=== PATIENT | male | born 1995 | race Caucasian/White ===

== ENCOUNTER 2017-04-07 15:44 | Emergency (ER) | payer BC ==
[~2017-04-07] VITALS: Ht 177.8 cm; Wt 82.9 kg
[~2017-04-07 15:44] MED LIST: DEXT30TA7 PO
[2017-04-07 15:47] VITALS: TEMP 36.4; Ht 177.8 cm; Wt 82.9 kg
--- NOTE | 2017-04-07 16:28 | DIAGNOSTIC IMAGING REPORT ---
HEAD WITHOUT CONTRAST (CT) CLINICAL HISTORY: 21 years-old Male with Intoxicated, fell and struck head, ?LOC. Acute head injury status post fall with intoxication. Initial exam. TECHNIQUE: Multiple axial CT images of the head were obtained without contrast. A dose lowering technique was utilized adhering to the principles of ALARA. COMPARISON: None. FINDINGS: No acute intracranial hemorrhage, midline shift, mass, large territorial ischemia or abnormal extra-axial collection. The calvarium is intact. The paranasal sinuses, mastoid air cells, and middle ear cavities are clear. There is mild occipital scalp soft tissue swelling without opaque foreign body. IMPRESSION: 1. No acute intracranial abnormality. 2. Mild occipital scalp soft tissue swelling without skull fracture or opaque foreign body. The above report was generated using voice recognition software. It may contain grammatical, syntax or spelling errors. Electronically signed by: Ajit Estevez M.D. 04/07/2017 4:27 PM Dictated Date/Time: 04/07/2017 4:25 PM
--- NOTE | 2017-04-07 16:32 | DIAGNOSTIC IMAGING REPORT ---
CERVICAL SPINE W/O CT DOSE: 960.13 mGy.cm CLINICAL HISTORY: 21 years-old Male with Intoxicated, fell and struck head, ?LOC. Acute head and neck injury status post fall. Initial exam. COMPARISON: CT head of same day. TECHNIQUE: Multiple axial CT images of the cervical spine were obtained without contrast. A dose lowering technique was utilized adhering to the principles of ALARA. FINDINGS: Vertebral body heights and alignment are normal. No fracture or subluxation is identified. The intervertebral disc spaces are preserved. No significant central canal or neural foraminal stenosis is identified. Mild left-sided uncovertebral spurring is noted at C4-C5 without significant narrowing identified. The cervical soft tissues appear unremarkable. The visualized lung apices appear clear. There is mild prominence of the adenoid tonsils. IMPRESSION: 1. No acute cervical spine fracture or subluxation. 2. Mild left-sided uncovertebral spurring at C4-C5 without significant stenosis. 3. Incidental note is made of mild adenoid tonsillar enlargement. The above report was generated using voice recognition software. It may contain grammatical, syntax or spelling errors. Electronically signed by: Ajit Estevez M.D. 04/07/2017 4:31 PM Dictated Date/Time: 04/07/2017 4:27 PM
--- NOTE | 2017-04-07 16:56 | EMERGENCY ROOM VISIT NOTE ---
History First contact with patient: 15:56 Chief Complaint: HEAD INJURY (MINOR) Stated Complaint: HEAD INJURY History of Present Illness The patient is a 21 year old male who presents to the Emergency Room via private vehicle accompanied by roommate and female with complaints of "head injury". The patient and roommate states that around 3:20 PM, the patient was getting out of the elevator at his door at work, slipped and struck his back against the wall therefore striking the occipital region of his head against the wall. He then fell to ground. The remainder notes that he was unconscious for a few seconds. He then was able to get up, and secondary to previous intoxication, the roommate was concerned therefore brought him here for evaluation. The patient does state that he has consumed alcohol today, and is intoxicated. He notes this may have happened before. He notes his tetanus is up-to-date. There is minimal bleeding from the back of the head. He currently denies any pain. Review of Systems A complete 10-point Review of Systems was discussed with the patient, with pertinent positives and negatives listed in the History of Present Illness. All remaining Review of Systems questions can be considered negative unless otherwise specified. Past Medical/Surgical History Medical Problems: (1) Right ankle sprain Family History Hypertension Social History Smoking Status: Never Smoker Housing Status: lives with roommate Occupation Status: [employer] student Current/Historical Medications No Active Prescriptions or Reported Meds Physical Exam Vital Signs Date Time Temp Pulse Resp B/P (MAP) Pulse Ox O2 Delivery O2 Flow Rate FiO2 04/07/17 17:08 68 20 138/68 98 04/07/17 15:51 16 100 04/07/17 15:47 36.4 110 16 134/79 98 Room Air Physical Exam VITAL SIGNS - Vital signs and nursing notes were reviewed. Patient is afebrile , blood pressure 134/79, tachycardic at 110 bpm, and is saturating well on room air at 98%. GENERAL -21-year-old male appearing his stated age who is in no acute distress. Communicates well with provider and answers questions appropriately. SKIN - Without rashes. There is a small area of abrasion noted to the occipital region. No step-off deformity noted. No bleeding noted. HEAD - NC/AT. No bernardo signs or raccoons eyes. EYES - PERRL with EOMI bilaterally. Sclera anicteric. Palpebral conjunctiva pink and moist with no injection noted. No hyphema. EARS - No deformities of external structures noted on gross examination bilaterally. No pain elicited with palpation of the tragus bilaterally. External auditory canals without discharge or otorrhea. Tympanic membranes pearly fowler without retraction or bulging. No fluid or purulent material visualized behind the TM. Handle of malleus, umbo, cone of light, pars tensa/ flaccid all easily visualized. No hemotympanum. NOSE - Midline and without cyanosis. No epistaxis or purulent drainage noted. Septum midline without deviation or septal hematoma noted. MOUTH/OROPHARYNX - Without perioral cyanosis. Buccal mucosa pink and moist and without leukoplakia. Tongue midline with equal elevation of palate bilaterally. No tonsillar hypertrophy, erythema, or exudates noted. Fair dentition noted. NECK - Neck with FROM. Supple to palpation. No lymphadenopathy noted. No nuchal rigidity. No C-spine tenderness. LUNGS - Chest wall symmetric without accessory muscle use, intercostals retractions, or central cyanosis. Normal vesicular breath sounds CTA B/L. No wheezes, rales, or rhonchi appreciated. CARDIAC - RRR with S1/S2. No murmur, rubs, or gallops appreciated. EXTREMITIES - No clubbing or peripheral cyanosis. No pretibial edema present. He is neurovascularly intact in the extremity is. +5/5 strength noted in UE/LE bilaterally. NEUROLOGIC - Cranial nerves II through XII grossly intact. Sensory intact to light touch throughout. Negative finger to nose. PSYCH - A&Ox3 and cooperates fully with examiner. Pt is very pleasant and interacts well with examiner. Medical Decision & Procedures ER Provider Diagnostic Interpretation: CERVICAL SPINE W/O CT DOSE: 960.13 mGy.cm CLINICAL HISTORY: 21 years-old Male with Intoxicated, fell and struck head, ?LOC. Acute head and neck injury status post fall. Initial exam. COMPARISON: CT head of same day. TECHNIQUE: Multiple axial CT images of the cervical spine were obtained without contrast. A dose lowering technique was utilized adhering to the principles of ALARA. FINDINGS: Vertebral body heights and alignment are normal. No fracture or subluxation is identified. The intervertebral disc spaces are preserved. No significant central canal or neural foraminal stenosis is identified. Mild left-sided uncovertebral spurring is noted at C4-C5 without significant narrowing identified. The cervical soft tissues appear unremarkable. The visualized lung apices appear clear. There is mild prominence of the adenoid tonsils. IMPRESSION: 1. No acute cervical spine fracture or subluxation. 2. Mild left-sided uncovertebral spurring at C4-C5 without significant stenosis. 3. Incidental note is made of mild adenoid tonsillar enlargement. The above report was generated using voice recognition software. It may contain grammatical, syntax or spelling errors. Electronically signed by: Ajit Estevez M.D. 04/07/2017 4:31 PM Dictated Date/Time: 04/07/2017 4:27 PM HEAD WITHOUT CONTRAST (CT) CLINICAL HISTORY: 21 years-old Male with Intoxicated, fell and struck head, ?LOC. Acute head injury status post fall with intoxication. Initial exam. TECHNIQUE: Multiple axial CT images of the head were obtained without contrast. A dose lowering technique was utilized adhering to the principles of ALARA. COMPARISON: None. FINDINGS: No acute intracranial hemorrhage, midline shift, mass, large territorial ischemia or abnormal extra-axial collection. The calvarium is intact. The paranasal sinuses, mastoid air cells, and middle ear cavities are clear. There is mild occipital scalp soft tissue swelling without opaque foreign body. IMPRESSION: 1. No acute intracranial abnormality. 2. Mild occipital scalp soft tissue swelling without skull fracture or opaque foreign body. The above report was generated using voice recognition software. It may contain grammatical, syntax or spelling errors. Electronically signed by: Ajit Estevez M.D. 04/07/2017 4:27 PM Dictated Date/Time: 04/07/2017 4:25 PM Medical Decision Patient was seen and evaluated as above. He presents to us today status post fall, and is intoxicated. Upon my entrance into the examination room, there is a very strong smell of alcohol. The patient is verbal, as are the other individuals in the room. He does not appear to exhibit any acute signs of neurologic or vascular deficit. Decision was made to obtain a CT scan the patient's head and C-spine secondary to his intoxication, and injury. These were negative for acute process. Patient was provided a copy of these, and is a follow-up for the incidental findings. He is observed here for some time, and was also seen by the attending physician. He is felt stable for discharge, but was given strict instructions not consuming more alcohol this evening, nor are his friends who are caring for him. They were educated upon worrisome symptoms which to return, had questions answered prior to discharge. He is to be woken from sleep every 3 hours. They were discharged home with an Uber in good condition. In the evaluation and treatment of this patient, the following differential diagnoses were considered: Concussion, Contrecoup Injury, Brain Tumor, Depression, Encephalitis, Hypothyroidism, Meningitis, CVA, TIA, Migraine, Cluster Headache, Intracranial Abnormality, Intracranial Hemorrhage, Subdural Hematoma, Subarachnoid Hemorrhage, Hydrocephalus. Impression Primary Impression: Closed head injury Departure Information Dispostion Home / Self-Care Condition GOOD Prescriptions No Active Prescriptions or Reported Meds Referrals No Doctor, Assigned (PCP) Patient Instructions [facility] Additional Instructions You have been treated in the Emergency Department for a Closed Head Injury. CT Scan of your head/brain demonstrated no acute bleeding or other emergent abnormalities. This does not completely rule out the risk for future damage to the brain. For pain control, you can use the following [id number] medicines: - Regular strength (325mg/tab) Tylenol (acetaminophen) 2 tabs every 4-6 hours as needed. Do not exceed 12 tablets in a 24 hour period. Avoid taking more than 3 grams (3000 mg) of Tylenol per day. This includes any other sources of acetaminophen you may take on a regular basis. - Regular strength (200 mg/tab) Advil (ibuprofen) 1-2 tabs every 4-6 hours as needed. Do not exceed a dose of 3200 mg per day. You should relax in a quiet, dark place for the rest of the day. Avoid any possible triggers including: cigarette smoke, caffeine, nicotine, chocolate, wine, beer, loud noises or music, or bright lights. You should schedule a follow-up appointment in 2-3 days with your Primary Care Provider or established Neurologist for further evaluation and treatment of your Headache. Return to the Emergency Department if your current symptoms worsen despite treatment course outlined above, or if you develop any of the following symptoms : intractable pain despite aforementioned treatment course, visual disturbances , loss of vision, unilateral weakness or facial drooping, slurring of speech, loss of coordination, or loss of consciousness. CERVICAL SPINE W/O CT DOSE: 960.13 mGy.cm CLINICAL HISTORY: 21 years-old Male with Intoxicated, fell and struck head, ?LOC. Acute head and neck injury status post fall. Initial exam. COMPARISON: CT head of same day. TECHNIQUE: Multiple axial CT images of the cervical spine were obtained without contrast. A dose lowering technique was utilized adhering to the principles of ALARA. FINDINGS: Vertebral body heights and alignment are normal. No fracture or subluxation is identified. The intervertebral disc spaces are preserved. No significant central canal or neural foraminal stenosis is identified. Mild left-sided uncovertebral spurring is noted at C4-C5 without significant narrowing identified. The cervical soft tissues appear unremarkable. The visualized lung apices appear clear. There is mild prominence of the adenoid tonsils. IMPRESSION: 1. No acute cervical spine fracture or subluxation. 2. Mild left-sided uncovertebral spurring at C4-C5 without significant stenosis. 3. Incidental note is made of mild adenoid tonsillar enlargement. The above report was generated using voice recognition software. It may contain grammatical, syntax or spelling errors. Electronically signed by: Ajit Estevez M.D. 04/07/2017 4:31 PM Dictated Date/Time: 04/07/2017 4:27 PM HEAD WITHOUT CONTRAST (CT) CLINICAL HISTORY: 21 years-old Male with Intoxicated, fell and struck head, ?LOC. Acute head injury status post fall with intoxication. Initial exam. TECHNIQUE: Multiple axial CT images of the head were obtained without contrast. A dose lowering technique was utilized adhering to the principles of ALARA. COMPARISON: None. FINDINGS: No acute intracranial hemorrhage, midline shift, mass, large territorial ischemia or abnormal extra-axial collection. The calvarium is intact. The paranasal sinuses, mastoid air cells, and middle ear cavities are clear. There is mild occipital scalp soft tissue swelling without opaque foreign body.
[2017-04-07 17:08] VITALS: BP 138/68; PULSE 68; O2SAT 98
== END 2017-04-07 17:10 | disposition home or self-care (01) ==
LOC: C.EDB 15:47 → C.EDD 17:10
DX: S09.90XA Unspecified injury of head, initial encounter (principal); W01.0XXA Fall on same level from slipping, tripping and stumbling without subsequent striking against object, initial encounter; Y92.89 Other specified places as the place of occurrence of the external cause; Z82.49 Family history of ischemic heart disease and other diseases of the circulatory system